=== PATIENT | male | born 1985 | race Caucasian/White ===

== ENCOUNTER 2024-12-12 15:03 | Outpatient (CLI) | payer BC, SELFPAY | END 2024-12-12 15:04 | disposition home or self-care (01) | PROVIDERS: Visit Provider Family Medicine | DX: K82.4 Cholesterolosis of gallbladder (principal); K90.41 Non-celiac gluten sensitivity; R10.9 Unspecified abdominal pain; Z13.6 Encounter for screening for cardiovascular disorders; Z13.29 Encounter for screening for other suspected endocrine disorder; Z11.59 Encounter for screening for other viral diseases | CPT/HCPCS: 80053; 80061; 82306; 84403; 86803; 87340 ==

== ENCOUNTER 2025-01-14 07:49 | Outpatient (CLI) | payer BC, SELFPAY ==
--- NOTE | 2025-01-14 09:00 | CRLHL7_ITS ---
For Patients: As a result of the Century Cures Act, medical imaging exams and procedure reports are released immediately into your electronic medical record. You may view this report before your referring provider. If you have questions, please contact your health care provider. INDICATION: 39-year-old man with history of chronic abdominal pain TECHNIQUE: 7.7 mCi Tc 99m Mebrofenin were administered intravenously and serial static images were obtained over the anterior abdomen over 60 minutes, demonstrating radiotracer uptake within the gallbladder and demonstrating tracer exiting into the small bowel. Subsequently, 1.5 micrograms cholecystokinin was administered intravenously and the anterior abdomen was serially imaged with static views for another 30 minutes. COMPARISON: None FINDINGS: There is normal radionuclide activity in the liver, common bile duct, gallbladder and small bowel. There is no evidence for cystic or common duct obstruction or intrinsic liver disease. After administration of cholecystokinin, tracer is demonstrated exiting the gallbladder into the common bile duct and small bowel. The gallbladder ejection fraction measures 80%. Normal range for GB EF: Equal to or greater than 35%. IMPRESSION: 1. Normal hepatobiliary scan. 2. Gallbladder ejection fraction measures 80%, within normal limits. Dictated by Mian Valle MD @ 01/14/2025 9:48:54 AM (Electronically Signed)
--- NOTE | 2025-01-14 09:30 | CRLHL7_ITS ---
For Patients: As a result of the Century Cures Act, medical imaging exams and procedure reports are released immediately into your electronic medical record. You may view this report before your referring provider. If you have questions, please contact your health care provider. INDICATION: Cholesterolosis of the Gallbladder. H/O Gallbladder Polyp. COMPARISON: none TECHNIQUE: Real time briggs scale imaging and color Doppler analysis was performed of the right upper quadrant. FINDINGS: The patient`s liver is of normal size and has uniform echogenicity. There is a normal appearance of the hepatic IVC and proximal abdominal aorta. There is no evidence of ascites. The gallbladder is of normal size and there is an echogenic focus associated with the gallbladder wall measuring 3 x 2 x 4 millimeters. The gallbladder wall measures 2 mm in thickness. The common bile duct is of normal size and measures 4 mm in diameter at the level of the shorty hepatis. The pancreas appears normal. There is no evidence of a stone or hydronephrosis within the right kidney. The right kidney measures 10.6 cm in length. IMPRESSION: 4 millimeter gallbladder polyp. Remainder unremarkable. Dictated by Ran Hart MD @ 01/14/2025 2:44:22 PM (Electronically Signed)
== END 2025-01-14 07:50 | disposition home or self-care (01) ==
LOC: US 07:50
PROVIDERS: Visit Provider Family Medicine
DX: R10.9 Unspecified abdominal pain (principal); K82.4 Cholesterolosis of gallbladder
CPT/HCPCS: 76705; 78227; A9537; J2805